=== PATIENT | female | born 1990 | race African-American/Black ===

== ENCOUNTER 2019-11-08 22:57 | Emergency (ER) | payer MEDICAID ==
[~2019-11-08] VITALS: Ht 157.5 cm; Wt 107.0 kg
[2019-11-08 22:59] VITALS: BP 133/89
[2019-11-08 23:56] LABS: CLARITY URINE CLEAR (CLEAR); COLOR URINE YELLOW (YELLOW); KETONES URINE NEGATIVE (NEGATIVE); LEUKOCYTE ESTERASE URINE NEGATIVE (NEGATIVE); NITRITE URINE NEGATIVE (NEGATIVE); OCCULT BLOOD URINE NEGATIVE (NEGATIVE); PROTEIN URINE NEGATIVE (NEGATIVE)
[2019-11-09] MEDS ORDERED: ACETAMINOPHEN 325MG TABLET PO ONE (01:30)
== END 2019-11-09 01:28 | disposition home or self-care (01) ==
LOC: ER 22:57
DX: R33.9 Retention of urine, unspecified (principal); R30.0 Dysuria; R39.15 Urgency of urination; R03.0 Elevated blood-pressure reading, without diagnosis of hypertension
CPT/HCPCS: 81003; 81025; 93005; 99284